=== PATIENT | female | born 1985 | race Caucasian/White ===

== ENCOUNTER 2021-09-27 18:06 | Emergency (ER) | payer MEDICAID ==
[~2021-09-27] VITALS: Ht 162.6 cm; Wt 73.0 kg
[2021-09-27] MEDS ORDERED: MORPHINE SULFATE 4 MG/ML CPJ (NOT FOR IM USE) IV ONE (18:15)
[2021-09-27 18:38] LABS: BASOPHILS % 0.8 % (0.0-2.0); EOSINOPHILS % 3.7 % (0.0-5.0); HEMATOCRIT. 31.3 % (36.0-48.0); HEMOGLOBIN. 10.4 g/dL (12.0-16.0); LYMPHOCYTES % 30.7 % (20.0-50.0); MEAN CORPUSCULAR HEMOGLOBIN 24.3 pg (28.0-32.0); MEAN CORPUSCULAR VOLUME 73.2 fL (81.0-99.0); MEAN PLATELET VOLUME 11.4 fl (7.4-10.4); MONOCYTES % 9.4 % (2.0-8.0); NEUTROPHILS % 55.4 % (40.0-76.0); PLATELET 134 x1000/uL (130-400); RED BLOOD CELL COUNT 4.28 mill/uL (4.2-5.4); RED CELL DISTRIBUTION WIDTH 18.4 % (11.6-14.6)
[2021-09-27 18:44] LABS: CHLORIDE 110 mEq/L (98-107)
[2021-09-27] MEDS ORDERED: HYDROMORPHONE HCL/PF 2MG/ML CPJ IV NR (20:17)
[2021-09-27] MEDS ORDERED: PROPOFOL 200MG/20ML VIAL IV ONE (20:45)
[2021-09-27] MEDS ORDERED: KETAMINE HCL 50 MG/ML 10ML IV ONE (20:45)
[2021-09-27] MEDS ORDERED: HYDR-4001 MT (21:54)
[2021-09-27] MEDS ORDERED: IBUP-2030 MT (21:54)
[2021-09-28] VITALS: BP 133/86
== END 2021-09-28 00:15 | disposition home or self-care (01) ==
LOC: ER 18:06
DX: S82.892A Other fracture of left lower leg, initial encounter for closed fracture (principal); R94.31 Abnormal electrocardiogram [ECG] [EKG]; X50.1XXA Overexertion from prolonged static or awkward postures, initial encounter; Y93.89 Activity, other specified; Y92.9 Unspecified place or not applicable
CPT/HCPCS: 27762; 36415; 73600; 73610; 80048; 85025; 93005; 96374; 96375; 99152; 99285; J1170; J2270; J2704; J3490